=== PATIENT | female | born 1970 | race Caucasian/White ===

== ENCOUNTER 2018-10-03 10:49 | Emergency (ER) | payer OTHER ==
[~2018-10-03] VITALS: Ht 154.9 cm; Wt 77.1 kg
--- NOTE | 2018-10-03 10:52 | NUR ---
Ivan snow in [facility] - 10/03/18 at 1058 by MED PATIENT TRANSFERRED TO BED 9
[2018-10-03 10:53] VITALS: BP 168/84
--- NOTE | 2018-10-03 10:53 | NUR ---
BROUGHT IN BY EMS FROM HOME. AAO X4 C/O INTERMITTENT LOWER BACK SPASM X YESTERDAY RECEIVED STEROID INJECTIONS TO LOWER BACK [address] [facility]. PT STATES SHE IS ABLE TO WALK BUT HAS TO STOP OFTEN. +CMS TO [facility]. ER TO [facility].
--- NOTE | 2018-10-03 11:04 | NUR ---
DR CHAPMAN AT BEDSIDE FOR PT EVALUATION
[2018-10-03] MEDS ORDERED: KETOROLAC 60 MG/2 ML VIAL IM ONE (11:10)
[2018-10-03 12:00] VITALS: BP 135/79
--- NOTE | 2018-10-03 12:00 | NUR ---
Patient discharged with v/s stable. Written and verbal after care instructions given and explained. Patient alert, oriented and verbalized understanding of instructions. Ambulatory with steady gait. All questions addressed prior to discharge. ID band removed. Patient advised to follow up with PMD. Rx of Motrin, Tramadol Hydrochloride given. Patient educated on indication of medication including possible reaction and side effects. Opportunity to ask questions provided and answered.
== END 2018-10-03 12:00 | disposition home or self-care (01) ==
LOC: MED 10:49
DX: M54.40 Lumbago with sciatica, unspecified side (principal); Z86.73 Personal history of transient ischemic attack (TIA), and cerebral infarction without residual deficits
CPT/HCPCS: 96372; 99283; J1885